=== PATIENT | female | born 1955 | race American Indian/Alaskan Native ===

== ENCOUNTER 2019-08-14 14:12 | Inpatient (IN) | payer MEDICARE ==
[~2019-08-14] VITALS: Ht 154.9 cm; Wt 79.1 kg
[~2019-08-14 14:12] MED LIST: ATE50T GT; DIAZ-104 PO; DIPH25CA66 PO; EPIN0.3I18 IM; ERGO1CAP6 PO; FAM20T PO; FEXO-38 PO; LEVO112T4 PO; LEVO750T2 PO; LOSA-69 PO; PAR20T PO; ROSU5TAB5 PO; TOPI25TA84 PO; TRIA0.5O2 TOP; [UNRECOGNIZED DRUG - CODE] SC
[2019-08-14] MEDS ORDERED: SODIUM CHLORIDE 0.9% 1,000 ML IVB ONE (14:34)
[2019-08-14] MEDS ORDERED: ASPirin 81 mg TAB PO ONE (14:45)
[2019-08-14] MEDS ORDERED: ONDANSETRON HCL 4 MG/2 ML VIAL IV ONE (14:45)
[2019-08-14 15:06] LABS: Basophils # (auto) 0 uL; Basophils % (auto) 0.9 % (0.0-2.0); Eosinophils # (auto) 0 uL; Eosinophils % (auto) 0.7 % (0.0-7.0); Hematocrit 43.5 % (36.0-46.0); Hemoglobin 14.6 g/dL (12.2-16.2); Lymphocytes # (auto) 1.5 uL; Mean Corpuscular Hgb Conc. 33.6 g/dL (32.0-36.0); Mean Corpuscular Volume 89.4 fL (80.0-100.0); Monocytes # (auto) 0.8 uL; Monocytes % (auto) 16.4 % (0.0-12.0); Neutrophils # (auto) 2.7 uL; Platelet Count (auto) 216 10^3/uL (140-450); Red Blood Cells 4.87 10^6/uL (4.0-5.20); Red Cell Distribution Width 15.2 % (11.8-14.3); White Blood Cell 5.1 10^3/uL (4.4-10.8)
[2019-08-14 15:26] LABS: Albumin 3.9 g/dL (3.4-5.0); Anion Gap 9 (5-15); BUN/Creatinine Ratio 18.3; Blood Urea Nitrogen 20 mg/dL (7-18); Calcium 8.7 mg/dL (8.5-10.1); Carbon Dioxide 23 mmol/L (21-32); Chloride 102 mmol/L (98-107); GFR African American 65 mL/min; GFR Non-African American 53 mL/min; Glucose 93 mg/dL (74-106); Potassium 4.3 mmol/L (3.5-5.1); Sodium 134 mmol/L (136-145)
[2019-08-14 15:39] LABS: Alanine Aminotransferase 48 U/L (13-56); Alkaline Phosphatase 67 U/L (45-117); Aspartate Aminotransferase 25 U/L (15-37); Bilirubin, Total 0.6 mg/dL (0.2-1.0); Total Protein 7.1 g/dL (6.4-8.2)
[2019-08-14] MEDS ORDERED: MORPHINE SULF INJ 2 MG/ML SYRINGE 1ML IV ONE (17:00)
[2019-08-14] MEDS ORDERED: NITROGLYCERIN 0.4 MG SL TAB SL PRN (17:15)
[2019-08-14] MEDS ORDERED: MORPHINE SULF INJ 2 MG/ML SYRINGE 1ML IV PRN (17:15)
[2019-08-14] MEDS ORDERED: KETOROLAC TROMETH 30 MG/ML 1ML VIAL IV ONE (17:30)
[2019-08-14] MEDS: hydrALAZINE HCL 20 MG/ML VL IV SCH (18:13)
[2019-08-14 18:55] VITALS: BP 152/81
--- NOTE | 2019-08-14 18:57 | NUR ---
Pt Arrived on Unit Pt arrived on unit viaw stretcher and was able to ambulate to bed without difficulty. Pt is a/ox4 with no s/s of distress or SOB. Pt has not complaints at this time. Safety measures are maintained with call light within reach, bed in lowest position and side rails up. Will endorse care to [facility] nurse.
[2019-08-14 19:09] VITALS: BP 152/81
--- NOTE | 2019-08-14 19:16 | NUR ---
Opening Shift Note Assumed care of patient, awake and alert. No S/S of distress/SOB or pain. Instructed on POC and to call for assist PRN, will continue to monitor for changes Q1hr and PRN. Side rails up x2. Bed locked in lowest position. Call light within reach.
[2019-08-14] MEDS: ATORVASTATIN 20 MG TAB PO SCH (20:45)
[2019-08-14] MEDS: ACETAMINOPHEN 500 MG TAB PO PRN (20:46)
[2019-08-14 21:00] VITALS: BP 116/57
[2019-08-14] MEDS ORDERED: ROSU20TA14 PO (21:03)
[2019-08-14] MEDS ORDERED: OME20T PO (21:03)
[2019-08-14] MEDS ORDERED: PROM25TA5 PO (21:03)
[2019-08-14] MEDS ORDERED: HYDRX10T PO (21:03)
[2019-08-14] MEDS ORDERED: IRBE300T46 PO (21:03)
[2019-08-14] MEDS ORDERED: METO25TA62 PO (21:03)
[2019-08-14] MEDS ORDERED: LEVO88TA4 PO (21:03)
[2019-08-14] MEDS ORDERED: ESOM2.5G OR (21:03)
[2019-08-14] MEDS ORDERED: [UNRECOGNIZED DRUG - CODE] SC (21:03)
[2019-08-14] MEDS ORDERED: FLUO-125 PO (21:03)
[2019-08-14] MEDS ORDERED: DIAZ10TA3 PO (21:03)
[2019-08-14] MEDS: ALBUTEROL SULF 2.5 MG/0.5ML(0.5%) NEB SOLN NEB PRN (21:38)
[2019-08-14] MEDS: IPRATROPIUM BROM 0.5 MG/2.5ML INH SOL NEB PRN (21:38)
[2019-08-15] VITALS (7 sets, daily range): BP systolic 103–134; BP diastolic 58–71
--- NOTE | 2019-08-15 02:17 | NUR ---
Rounds Patient in bed asleep with no signs of distress/sob/pain. Will continue to monitor.
[2019-08-15] MEDS: ALBUTEROL SULF 2.5 MG/0.5ML(0.5%) NEB SOLN NEB PRN (03:17)
[2019-08-15] MEDS: IPRATROPIUM BROM 0.5 MG/2.5ML INH SOL NEB PRN (03:17)
[2019-08-15] MEDS: ONDANSETRON HCL 4 MG/2 ML VIAL IV PRN ×2 (03:23→09:34)
[2019-08-15] MEDS: HYDROcodone-ACET 5/325MG TAB PO PRN ×3 (03:23→16:17)
[2019-08-15] MEDS: MORPHINE SULF INJ 2 MG/ML SYRINGE 1ML IV PRN (04:45)
[2019-08-15] MEDS: hydrALAZINE HCL 20 MG/ML VL IV SCH ×4 (05:43→18:00)
--- NOTE | 2019-08-15 07:05 | NUR ---
Opening Shift Note Report received and rounds completed. Patient observed awake, alert, and oriented without current S/S of distress. Patient oriented to this RN and POC, verbalized understanding. Call kapadia within reach and understood to call if needing assistance.
[2019-08-15 07:13] LABS: Basophils # (auto) 0 uL; Basophils % (auto) 0.6 % (0.0-2.0); Eosinophils # (auto) 0 uL; Eosinophils % (auto) 0.3 % (0.0-7.0); Hematocrit 40.3 % (36.0-46.0); Hemoglobin 13.7 g/dL (12.2-16.2); Lymphocytes # (auto) 0.8 uL; Lymphocytes % (auto) 17.5 % (10.0-50.0); Mean Corpuscular Hemoglobin 30.5 pg (28.0-32.0); Mean Corpuscular Hgb Conc. 33.9 g/dL (32.0-36.0); Mean Corpuscular Volume 89.9 fL (80.0-100.0); Monocytes # (auto) 0.6 uL; Monocytes % (auto) 13.1 % (0.0-12.0); Neutrophils # (auto) 3.2 uL; Neutrophils % (auto) 68.5 % (37.0-80.0); Nucleated Red Blood Cells % 0.1 %; Platelet Count (auto) 184 10^3/uL (140-450); Red Blood Cells 4.48 10^6/uL (4.0-5.20); White Blood Cell 4.7 10^3/uL (4.4-10.8)
--- NOTE | 2019-08-15 07:24 | NUR ---
Endorsed care to day shift RN.
[2019-08-15 07:26] LABS: INR 0.93 (0.9-1.15); Partial Thromboplastin Time 22.1 sec (23.64-32.05)
[2019-08-15 07:31] LABS: BUN/Creatinine Ratio 19.4; Calcium 8.4 mg/dL (8.5-10.1)
--- NOTE | 2019-08-15 08:31 | NUR ---
Respiratory note: PT ASSESSMENT FOR Q4PRN. FOUND PT ON ROOM AIR. PT IS AWAKE, ALERT AND RESPONSIVE. NO DISTRESS AT THIS TIME. NO COMPLAINT OF SOB. HR IS 86, RR 18, SP02 96%. B/S ARE CLEAR AND DIMINISHED THROUGHOUT. TX NOT INDICATED AT THIS TIME. INFORMED PT IF BECOMES SOB TO PUSH CALL LIGHT AND RT WILL BE PAGED. NO QUESTIONS OR CONCERNS AT THIS TIME.
[2019-08-15] MEDS: PANTOPRAZOLE 40 MG TAB PO SCH (09:30)
[2019-08-15] MEDS: METOPROLOL SUCCINATE XL 50 MG TAB PO SCH (09:31)
[2019-08-15] MEDS: LOSARTAN POTASSIUM 25 MG TAB PO SCH (09:31)
--- NOTE | 2019-08-15 11:21 | NUR ---
Off floor Patient transported to stress test by tech in wheelchair. No S/S of distress noted at this time.
[2019-08-15] MEDS ORDERED: ADENOSINE 55 MG in GIVE UN-DILUTED 0 ML IV STA (11:29)
[2019-08-15] MEDS ORDERED: LEVOTHYROXINE SODIUM 88 MCG TAB PO ONE (11:45)
--- NOTE | 2019-08-15 12:45 | NUR ---
Back to floor Patient back to floor from cardiolite.
[2019-08-15] MEDS: LORazepam 2MG/ML-1ML VIAL IV PRN (15:11)
[2019-08-15] MEDS: ACETAMINOPHEN 500 MG TAB PO PRN (18:25)
--- NOTE | 2019-08-15 19:19 | NUR ---
Respiratory note: At bedside to assess for prn tx, tx not indicated at this time. BS are clear t/o, hr 80-85. rr 12-16, pox 95% on ra. RT name and pager assignment written on pts room board. Will continue to monitor as needed.
[2019-08-15] MEDS: ATORVASTATIN 20 MG TAB PO SCH (21:02)
[2019-08-16 06:00] VITALS: BP 115/67
[2019-08-16] MEDS: hydrALAZINE HCL 20 MG/ML VL IV SCH ×4 (06:00→17:41)
[2019-08-16] MEDS: LEVOTHYROXINE SODIUM 88 MCG TAB PO SCH (06:45)
[2019-08-16] MEDS: IPRATROPIUM BROM 0.5 MG/2.5ML INH SOL NEB PRN ×2 (07:40→20:49)
[2019-08-16] MEDS: ALBUTEROL SULF 2.5 MG/0.5ML(0.5%) NEB SOLN NEB PRN ×2 (07:40→20:49)
--- NOTE | 2019-08-16 08:12 | NUR ---
Artis Smith at bedside. ordered to follow up the results of Stress Test and call him for update, patient for possible discharge today if the Stress Test is negative.
[2019-08-16 09:00] VITALS: BP 145/76
[2019-08-16] MEDS: LORazepam 2MG/ML-1ML VIAL IV PRN ×2 (09:00→21:05)
--- NOTE | 2019-08-16 09:00 | NUR ---
Patient stated she's having anxiety, requested for anti-anxiety medication. Patient verbalized "My son does not believe in medicine." Ativan Inj 0.5 mg given for anxiety as ordered.
--- NOTE | 2019-08-16 09:43 | NUR ---
Called [facility], spoke with Ramon. Stress Test written results not available yet. Will follow up with Dr. Milan.
--- NOTE | 2019-08-16 09:46 | NUR ---
Called Dr. Vásquez's office. Spoke with Stella. Stella to page Dr. Vásquez what's is the result of Stress Test done yesterday. Waiting for MD to call back.
[2019-08-16 09:50] LABS: Cholesterol 152 mg/dL (< 200); Triglycerides 95 mg/dL (< 150)
[2019-08-16 09:53] LABS: HDL Cholesterol 59 mg/dL (40-59); LDL Cholesterol 84 mg/dL (< 100)
[2019-08-16] MEDS ORDERED: LISINOPRIL 20 MG TAB PO SCH (10:00)
[2019-08-16] MEDS: LOSARTAN POTASSIUM 25 MG TAB PO SCH (10:03)
[2019-08-16] MEDS: PANTOPRAZOLE 40 MG TAB PO SCH (10:03)
[2019-08-16] MEDS: METOPROLOL SUCCINATE XL 50 MG TAB PO SCH (10:03)
[2019-08-16] MEDS: ASPirin 81 mg TAB PO SCH (10:04)
[2019-08-16 13:00] VITALS: BP 140/75
--- NOTE | 2019-08-16 16:20 | NUR ---
Called Dr. Milan. said there's mild anterior ischemia on the Stress Test, but the official reading has to be put in by Dr. Vásquez.
--- NOTE | 2019-08-16 16:27 | NUR ---
Called Dr. Vásquez's office again. Spoke with Rosy. Rosy to send a message to Dr. Vásquez regarding what's the result of Stress Test that was done yesterday. .
[2019-08-16 17:00] VITALS: BP 105/72
--- NOTE | 2019-08-16 18:02 | NUR ---
TROY Lama will call Dr. Vásquez regarding what's the result of patient's Stress Test that was done yesterday, Wednesday.
--- NOTE | 2019-08-16 18:40 | NUR ---
Daina called that Dr. Vásquez replied that patient's Stress Test result is negative. Waiting for the written results on the computer.
--- NOTE | 2019-08-16 19:30 | NUR ---
Opening Shift Note Assumed care of patient, awake and alert. No S/S of distress/SOB or pain. Instructed on POC and to call for assist PRN, patient verbalized understanding, call light within reach, will continue to monitor for changes Q1hr and PRN.
[2019-08-16] MEDS: ONDANSETRON HCL 4 MG/2 ML VIAL IV PRN (19:56)
[2019-08-16] MEDS: MORPHINE SULF INJ 2 MG/ML SYRINGE 1ML IV PRN (19:59)
--- NOTE | 2019-08-16 20:45 | NUR ---
Patient anxious at this time, complained of generalized pain and SOB. PRN pain meds and anxiety med given. Breathing treatment given by RT, will continue to monitor
[2019-08-16] MEDS: ATORVASTATIN 20 MG TAB PO SCH (21:05)
[2019-08-16 22:00] VITALS: BP 129/71
[2019-08-17 05:00] VITALS: BP 111/66
[2019-08-17] MEDS: hydrALAZINE HCL 20 MG/ML VL IV SCH ×3 (06:00→12:00)
[2019-08-17] MEDS: LEVOTHYROXINE SODIUM 88 MCG TAB PO SCH (06:08)
--- NOTE | 2019-08-17 07:38 | NUR ---
Respiratory note: Assessed pt for prn medneb tx. HR 83, RR 14, POX 95% on room air. Breath sounds clear/diminished throughout. No s/s of respiratory distress noted. Medneb tx not indicated at this time. Advised pt to call for RT if needed.
--- NOTE | 2019-08-17 08:20 | NUR ---
Artis Smith at bedside. to put in discharge orders.
[2019-08-17 09:00] VITALS: BP 113/69
[2019-08-17] MEDS: PANTOPRAZOLE 40 MG TAB PO SCH (09:37)
[2019-08-17] MEDS: ASPirin 81 mg TAB PO SCH (09:38)
--- NOTE | 2019-08-17 09:38 | NUR ---
Dr. Vásquez came over. said patient is okay for discharge as per Cardiology perspective.
[2019-08-17] MEDS: LOSARTAN POTASSIUM 25 MG TAB PO SCH (09:39)
[2019-08-17] MEDS: METOPROLOL SUCCINATE XL 50 MG TAB PO SCH (09:39)
[2019-08-17 12:41] VITALS: BP 113/69
[2019-08-17 13:02] VITALS: BP 113/69
--- NOTE | 2019-08-17 13:20 | NUR ---
Paged the RT again for patient's breathing treatment.
[2019-08-17] MEDS: ALBUTEROL SULF 2.5 MG/0.5ML(0.5%) NEB SOLN NEB PRN (13:41)
[2019-08-17] MEDS: IPRATROPIUM BROM 0.5 MG/2.5ML INH SOL NEB PRN (13:41)
--- NOTE | 2019-08-17 14:20 | NUR ---
Patient sitting in chair, stated she had her breathing treatment, she's waiting for her son to come over to pick her up.
--- NOTE | 2019-08-17 14:35 | NUR ---
Discharge instructions given as ordered. Encourage to follow up with PMD as instructed. All questions and concerns addressed. Patient verbalized understanding. Medication reconciliation form completed and copy given to patient. Home medications held in the Pharmacy returned to patient. IV removed with catheter intact, pressure dressing applied. Telemetry unit returned to ICU. Patient is ambulatory, steady gait noted. Patient refused to be taken to vehicle via wheelchair, patient with all personal belongings, accompanied by family member. No distress noted at time of departure.
== END 2019-08-17 14:35 | disposition home or self-care (01) | DRG 316 ==
LOC: ER 14:15 → TELE 14:16 → TELE-CENTR 19:08
PROVIDERS: ADMIT Nurse Practitioner Acute Care; ATTEND Family Medicine
DX: I31.9 Disease of pericardium, unspecified (principal); E03.9 Hypothyroidism, unspecified; E78.5 Hyperlipidemia, unspecified; K21.9 Gastro-esophageal reflux disease without esophagitis; N18.3 Chronic kidney disease, stage 3 (moderate); I12.9 Hypertensive chronic kidney disease with stage 1 through stage 4 chronic kidney disease, or unspecified chronic kidney disease; Z79.899 Other long term (current) drug therapy; Z80.9 Family history of malignant neoplasm, unspecified; F41.9 Anxiety disorder, unspecified; I35.2 Nonrheumatic aortic (valve) stenosis with insufficiency; Z87.01 Personal history of pneumonia (recurrent)
CPT/HCPCS: 36415; 71045; 78452; 80048; 80053; 80061; 83880; 84443; 84484; 85025; 85379; 85610; 85730; 86141; 87081; 93005; 93017; 93306; 94640; 94761; 96361; 96374; 96375; G0378; J0153; J1885; J2405